=== PATIENT | female | born 1940 | race Caucasian/White ===

== ENCOUNTER → 2017-11-22 09:45 | Outpatient (CLI) | payer MEDICARE, SELFPAY ==
--- NOTE | 2017-11-22 09:42 | DI.REPORT_ITS ---
SYMPTOMS/DIAGNOSIS: PAIN ANKLE AND KNEES RIGHT ANKLE: There are mild degenerative changes involving the mortise joint. A calcaneal spur is demonstrated with adjacent small regions of calcification in the plantar fascia. Note is also made of apparent moderate DJD involving the talonavicular joint. LEFT KNEE: Medial tibiofemoral joint space narrowing, articular sclerosis and periarticular hypertrophic spurring is demonstrated. There is evidence of chondrocalcinosis and severe degenerative changes involving the patellofemoral joint. There is no evidence of a joint effusion. SUMMARY: Findings consistent with severe DJD. RIGHT KNEE: Medial tibiofemoral joint space narrowing, articular sclerosis and periarticular hypertrophic spurring are demonstrated and there is severe DJD involving the patellofemoral joint. SUMMARY: Severe DJD right knee.
== END ==
PROVIDERS: PCP Family Medicine; Visit Provider Orthopaedic Surgery
DX: M17.0 Bilateral primary osteoarthritis of knee (principal); M19.071 Primary osteoarthritis, right ankle and foot; M25.571 Pain in right ankle and joints of right foot; M77.31 Calcaneal spur, right foot; M25.562 Pain in left knee; M25.561 Pain in right knee
CPT/HCPCS: 73562 ×2; 73610; 99204